=== PATIENT | female | born 1955 | race Caucasian/White ===

== ENCOUNTER → 2016-08-03 | Outpatient (CLI) | payer BC ==
--- NOTE | ~2016-08-03 | US5 ---
[facility] A Service of [facility] RADIOLOGY TEXT RESULTS PATIENT: YANET PRESCOTT LOCATION: [facility] : 55 UNIT #: [id number] AGE: [address]: Greyson Duran MD SEX: F ORDER DR: [id number] [address] [address] [id number] O MR#: [id number] Acc #: [id number] NAME: YANET PRESCOTT : 1955 SEX: F STUDY DATE/TIME: 08/03/2016 8:11 UNIT: SG ROOM: STUDY DESCRIPTION: US Abdominal Complete Attending Physician: Greyson Durna M.D. Referring Physician: Greyson Duran M.D. Ordering Physician: Greyson Duran M.D. Primary Care Physician: Greyson Duran M.D. MEDICAL IMAGING REPORT This report is preliminary unless electronic signature is present. EXAM Abdominal ultrasound complete, 08/03/2016 HISTORY Abdomen pain for 8 months. Cholecystectomy 16 years ago. FINDINGS The liver demonstrates an increase in echotexture with attenuation of the ultrasound beam characteristic of fatty infiltration. No cystic or solid mass lesions were seen within the liver. The intrahepatic bile ducts are not dilated. The gallbladder is surgically absent as per patient history. The common duct was not definitely visualized. The pancreas is obscured by bowel gas. The spleen measures 8.7 cm in greatest diameter. The visualized portions of the abdominal aorta and inferior vena cava are within normal limits. The kidneys are normal bilaterally. IMPRESSION 1. Fatty infiltration of the liver. 2. Surgical absence of the gallbladder. 3. Limited examination as the pancreas and common bile duct were obscured by bowel gas. Dictated by... Renny Smith M.D. THIS IS AN ELECTRONICALLY VERIFIED REPORT Renny Smith M.D. at 08/04/2016 8:07 AM Mony TD: 08/03/2016 10:34 JOB #: [id number] [facility] A Service of [facility] RADIOLOGY TEXT RESULTS PATIENT: YANET PRESCOTT LOCATION: [facility] #: [id number] : 55 UNIT #: [id number] AGE: [address]: Greyson Duran MD SEX: F ORDER DR: MEDICAL IMAGING REPORT Page 1 of 1
== END | disposition home or self-care (01) ==
LOC: SGUS 07:54
DX: R10.9 Unspecified abdominal pain (principal); K76.0 Fatty (change of) liver, not elsewhere classified; Z90.49 Acquired absence of other specified parts of digestive tract
CPT/HCPCS: 76700